=== PATIENT | male | born 1940 | race Caucasian/White ===

== ENCOUNTER → 2021-05-17 | Outpatient (CLI) | payer MEDICARE | LOC: SPEC 08:09 | PROVIDERS: ATTEND Internal Medicine Nephrology | DX: I12.9 Hypertensive chronic kidney disease with stage 1 through stage 4 chronic kidney disease, or unspecified chronic kidney disease (principal); N18.6 End stage renal disease; K92.2 Gastrointestinal hemorrhage, unspecified | CPT/HCPCS: 36415; 85018 ==

== ENCOUNTER → 2021-07-09 | Outpatient (CLI) | payer MEDICARE ==
[2021-07-09 09:06] LABS: HEMATOCRIT 27.2 % (39.0-53.0); HEMOGLOBIN 8.9 g/dL (13.0-17.5)
== END ==
LOC: LAB 08:37
PROVIDERS: ATTEND Internal Medicine Nephrology
DX: K92.1 Melena (principal)
CPT/HCPCS: 36415; 85014; 85018